=== PATIENT | female | born 1975 | race African-American/Black ===

== ENCOUNTER 2017-04-06 21:26 | Emergency (ER) | payer SELFPAY ==
[~2017-04-06] VITALS: Ht 157.5 cm; Wt 90.8 kg
[2017-04-06] MEDS ORDERED: PROMETHAZINE 25 MG/ML, 1ML IM ONE (22:00)
[2017-04-06] MEDS ORDERED: HYDROmorphone 1 MG/ML, 1ML IM ONE (22:00)
[2017-04-06] MEDS ORDERED: KETOROLAC 60 MG/2 ML IM ONE (22:00)
[2017-04-06] MEDS ORDERED: KETOROLAC 30 MG/1 ML ONE (22:18)
[2017-04-06] MEDS ORDERED: HYDROmorphone 1 MG/ML, 1ML ONE (22:18)
[2017-04-06] MEDS ORDERED: PROMETHAZINE 25 MG/ML, 1ML ONE (22:18)
[2017-04-06 23:01] VITALS: BP 145/88
== END 2017-04-07 00:16 | disposition home or self-care (01) ==
LOC: ED 22:53
DX: R51 Headache (principal); R07.2 Precordial pain
CPT/HCPCS: 36415; 71010; 84484; 93005; 96372; 99285; J1170; J1885; J2550